=== PATIENT | male | born 1990 | race Caucasian/White ===

== ENCOUNTER 2022-03-26 12:08 | Emergency (ER) | payer OTHER, SELFPAY ==
--- NOTE | ~2022-03-26 | US_ITS ---
US scrotum doppler DATE: 03/26/2022 13:48 INDICATION: Scrotal pain following mastectomy 3 days ago TECHNIQUE: Real-time and color flow imaging and Doppler analysis of the scrotal contents COMPARISON: None FINDINGS: Right testicle 3.6 x 2.2 x 4 cm. Left testicle 4.2 x 2.2 x 3.1 cm. No testicular mass lesion or torsion is detected. No hydrocele or varicocele. IMPRESSION: No significant abnormality Reviewed, dictated and finalized at [facility]. Reviewed, dictated and finalized at [facility] [employer] IMPRESSION: No significant abnormality
[2022-03-26 12:32] VITALS: BP 132/68; PULSE 78; RESP 16; TEMP 36.6; O2SAT 100
[2022-03-26 12:57] LABS: Appearance Urine Clear (Clear); Bilirubin Urine Negative (Negative); Blood Urine Negative (Negative); Color Urine Yellow (Yellow); Glucose Urine UA Negative (Negative); Ketones Urine Negative (Negative); Leukocyte Esterase Ur Negative LEU/UL (Negative); Nitrate Urine Negative (Negative); Protein Urine Negative (Negative); Specific Grav Ur 1.015 (1.001-1.035); Urobilinogen Urine 0.2 mg/dL (<2.0)
[2022-03-26 13:04] LABS: Add Urine Microscopic? NO
--- NOTE | 2022-03-26 13:32 | ED.MALEGU ---
HPI - Male Genitourinary General Chief complaint: Urogenital-Male Stated complaint: had vasectomy on Friday, in a lot of pain Time Seen by Provider: 03/26/22 12:43 Source: patient and RN notes reviewed Mode of arrival: ambulatory Limitations: no limitations History of Present Illness HPI Narrative: This is a 32 year old male that presents to the ER for left testicular pain. Ongoing over the last couple of days, worsening last night. Reports the pain is constant and achy in nature. Reports swelling of the testicle. He recently underwent vasectomy with Dr. Dahl. Denies fever or dysuria. Related Data Allergies Allergy/AdvReac Type Severity Reaction Status Date / Time No Known Drug Allergies Allergy Verified 11/02/12 18:01 Review of Systems Review of Systems: CONSTITUTIONAL: Denies fever GASTROINTESTINAL: Denies abdominal pain, nausea, vomiting GENITOURINARY: Denies dysuria or hematuria. SKIN: Denies rash All systems reviewed & are unremarkable except as noted in HPI and below PMFSH Surgical History Surgical History (Updated 03/26/22 @ 14:48 by Vida Garcia PA-C) History of vasectomy Social History Social History (Updated 03/26/22 @ 13:49 by Vida Garcia PA-C) Substance use: never Exam Narrative: GENERAL: Well-appearing, well-nourished, and in no acute distress. HEAD: Normocephalic, atraumatic. EYES: EOMI. CHEST: Clear to auscultation. No respiratory distress. No wheezes rales or rhonchi HEART: Regular rate and rhythm. No murmur heard. Normal peripheral pulses. ABDOMEN: Soft, nontender, nondistended, normal active bowel sounds. EXTREMITIES: Normal range of motion. No edema. SKIN: Warm, dry, no rash. NEURO: No focal deficits. Alert and oriented x3. PSYCH: Normal mood and affect MALE GENITAL: Normal external genitalia. Left testicle is tender to palpation. No swelling or erythema noted. Incisions are intact without any abnormal drainage Course Consultations Consultation #1: Spoke with Dr. Dahl about patient and work-up. Would like patient to be given tramadol as needed for pain and started on empiric antibiotic, ciprofloxacin Date: 03/26/22 Time: 14:46 Vital Signs Vital signs: Vital Signs Temperature 97.8 F 03/26/22 12:32 Pulse Rate 78 03/26/22 12:32 Respiratory Rate 16 03/26/22 12:32 Blood Pressure 132/68 03/26/22 12:32 Pulse Oximetry 100 03/26/22 12:32 Oxygen Delivery Room Air 03/26/22 12:32 Temperature 97.8 F 03/26/22 12:32 Pulse Rate 78 03/26/22 12:32 Respiratory Rate 16 03/26/22 12:32 Blood Pressure 132/68 03/26/22 12:32 Pulse Oximetry 100 03/26/22 12:32 Oxygen Delivery Room Air 03/26/22 12:32 MDM - Male Genitourinary MDM Narrative Medical decision making narrative: Patient presents to the emergency department for testicular pain ongoing since his recent vasectomy. Patient is afebrile and nontoxic-appearing. Urine is normal. No concerning findings on exam. Scrotal ultrasound without significant abnormality. Spoke with Dr. Dahl about patient and work-up. Would like patient to be given tramadol as needed for pain and started on empiric antibiotic, ciprofloxacin. Patient and family updated on work-up and plan of care. He is to follow-up with urology. He was given warnings to return to the ER Differential Diagnosis Differential diagnosis: Likely urinary tract infection, epididymitis and other (testicular torsion, post-vasectomy pain) Lab Data Attestation: I reviewed the patient's lab results. Labs: Lab Results 03/26/22 Range/Units 12:50 Urine Color Yellow (Yellow) Urine Appearance Clear (Clear) Urine pH 7.0 (5.0-9.0) Ur Specific [place] 1.015 (1.001-1.035) Urine Protein Negative (Negative) mg/dL Urine Glucose (UA) Negative (Negative) mg/dL Urine Ketones Negative (Negative) mg/dL Ur Blood (Man) Negative (Negative) Urine Nitrate Negative (Negative) Urine Bilirubin Negative (Negative)
[2022-03-26] MEDS: ACETAMINOPHEN 500 MG TABLET 1000 MG PO (14:30)
== END 2022-03-26 15:01 | disposition home or self-care (01) ==
PROVIDERS: Emergency Provider Physician Assistant; PCP Internal Medicine
DX: N50.812 Left testicular pain (principal); Z98.52 Vasectomy status
CPT/HCPCS: 76870; 81003; 93976; 99284; A9270